=== PATIENT | female | born 1990 | race Caucasian/White ===

== ENCOUNTER 2017-03-16 16:29 | Emergency (ER) | payer SELFPAY ==
[~2017-03-16] VITALS: Ht 167.6 cm; Wt 90.0 kg
[~2017-03-16 16:29] MED LIST: BACT800T5 PO; CLAR10CA3 PO
[2017-03-16 16:31] VITALS: BP 126/80; PULSE 108; RESP 16; TEMP 98.5; O2SAT 97
--- NOTE | 2017-03-16 16:36 | PD ---
Physical Exam Time Seen by Provider: 16:35 Narrative 26-year-old female presents with complaint of white watery vaginal discharge with a fishy odor 3 days. Reports right lower abdominal cramping. Says it is not really a pain. Denies fever, vomiting. Unknown exposure to STD I/STD. Denies dysuria. Patient seen in triage. Vital signs reviewed. Patient awaiting bed placement. Data Data Last Documented VS Vital Signs Date Time Temp Pulse Resp B/P (MAP) Pulse Ox O2 Delivery O2 Flow Rate FiO2 03/16/17 16:31 98.5 108 16 126/80 (95) 97 Room Air [facility] Supervised Visit with CHUY: Bettina Genao Mar 16, 2017 16:36
[2017-03-16 18:29] LABS: BACTERIA, URINE RARE /hpf; BLOOD, URINE NEG (NEG); COMMENT (UR) CULT NOT INDICATED; CULTURE IF INDICATED CULT NOT INDICATED; GLUCOSE,URINE NEG (NEG); KETONE, URINE NEG (NEG); NITRITE,URINE NEG (NEG); SQUAMOUS EPITHELIAL CELL URINE 1 /hpf (0-5); URINE COLOR YELLOW (YELLW/STRAW)
--- NOTE | 2017-03-16 18:40 | PD ---
HPI Chief Complaint: [facility] Problem/Complaint Time Seen by Provider: 17:35 Travel History International Travel<30 days: No Contact w/Intl Traveler<30days: No Traveled to known affect area: No History of Present Illness HPI 26-year-old female came to the emergency room with history of vaginal discharge that is foul smelling for past 1 week. No history of pain, dysuria or fever. Patient has tried using [employer] which has not helped. Patient now is embarrassed to have intercourse given the foul smell. She has 1 partner that is for past 6 months and has been having unprotected sex. She is not . His history of STD. [facility] Past Medical History Narrative Medical List of her past medical, surgical, social and family history is reviewed from the nursing note. Diminished Hearing: No Genitourinary: Yes (yeast infection) Tetanus Vaccination: > 5 Years Influenza Vaccination: No ?: Not LMP: 02/27/17 Past Surgical History Cholecystectomy: Yes Social History Alcohol Use: No Tobacco Use: Yes Substance Use: No Allergies-Medications (Allergen,Severity, Reaction): Coded Allergies: Penicillins (Verified Allergy, Severe, rash, 03/16/17) Comments List of her allergies reviewed from the nursing note. Reported Meds & Prescriptions Reported Meds & Active Scripts Active No Active Prescriptions or Reported Medications Narrative Medication List of her home medications reviewed from the nursing note. Review of Systems Except as stated in HPI: all other systems reviewed are Neg Genitourinary: Positive: Discharge Physical Exam Narrative GENERAL: Awake, alert, obese, no obvious distress SKIN: Focused skin assessment warm/dry. HEAD: Atraumatic. Normocephalic. EYES: Pupils equal and round. No scleral icterus. No injection or drainage. ENT: No nasal bleeding or discharge. Mucous membranes pink and moist. NECK: Trachea midline. No JVD. CARDIOVASCULAR: Regular rate and rhythm. No murmur appreciated. RESPIRATORY: No accessory muscle use. Clear to auscultation. Breath sounds equal bilaterally. GASTROINTESTINAL: Abdomen soft, non-tender, nondistended. Hepatic and splenic margins not palpable. [employer]ER: Pelvic exam was done with the help of the speculum. External exam negative. There was some fishy odor detected on exam. Discharged looked normal. No CMT or adnexal tenderness. MUSCULOSKELETAL: No obvious deformities. No clubbing. No cyanosis. No edema. NEUROLOGICAL: Awake and alert. No obvious cranial nerve deficits. Motor grossly within normal limits. Normal speech. PSYCHIATRIC: Appropriate mood and affect; insight and judgment normal. Data Data Last Documented VS Vital Signs Date Time Temp Pulse Resp B/P (MAP) Pulse Ox O2 Delivery O2 Flow Rate FiO2 03/16/17 19:00 97.8 76 16 120/77 (91) 99 03/16/17 16:31 Room Air Orders Orders Gc And Chlamydia Pcr (03/16/17 17:36) Wet Prep Profile (03/16/17 17:36) Urinalysis - C+S If Indicated (03/16/17 17:36) Ed Urine Pregnancytest Poc (03/16/17 17:36) Ed Discharge Order (03/16/17 18:44) Labs Laboratory Tests Test 03/16/17 18:00 Urine Color YELLOW Urine Turbidity CLEAR Urine pH 7.0 Urine Specific [place] 1.022 Urine Protein NEG mg/dL Urine Glucose (UA) NEG mg/dL Urine Ketones NEG mg/dL Urine Occult Blood NEG Urine Nitrite NEG Urine Bilirubin NEG Urine Urobilinogen LESS THAN 2.0 MG/DL Urine Leukocyte Esterase NEG Urine WBC 3 /hpf Urine Squamous Epithelial Cells 1 /hpf Urine Bacteria RARE /hpf Microscopic Urinalysis Comment CULT NOT INDICATED Clue Cells (Wet Prep) NONE SEEN Vaginal Trichomonas (Wet Prep) NONE SEEN Vaginal Yeast (Wet Prep) NONE SEEN Chlamydia trachomatis DNA (PCR) NOT DETECTED Neisseria gonorrhoeae DNA (PCR) NOT DETECTED MDM Medical Decision Making Medical Screen Exam Complete: Yes Emergency Medical Condition: Yes Medical Record Reviewed: Yes Differential Diagnosis PID, vaginitis Narrative Course 6:42 PM with prep is negative. Awaiting for GC and chlamydia. I'm comfortable discharging the patient home without a treatment at this point. We'll call her back if any of the test results are positive. UA was within normal limit. Bedside was negative. Procedures EKG Prior to Arrival: No Diagnosis Primary Impression: Vaginal discharge Referrals: Primary Care Physician Additional Instructions: We will call you and the left know if the GC and/or chlamydia is positive in which case he will need to return to get treated. Have protected intercourse up until then. Return to the ER if the condition worsens or any other new concerns. Med/Other Pt SpecificInfo: No Change to Meds Scripts No Active Prescriptions or Reported Meds Disposition: 01 DISCHARGE HOME Condition: Stable Nate Sheikh MD Mar 16, 2017 18:40
[2017-03-16 19:00] VITALS: BP 120/77; TEMP 97.8
[2017-03-16 20:58] LABS: CHLAMYDIA PCR NOT DETECTED (NOT DETECT); NEISSERIA PCR NOT DETECTED (NOT DETECT)
== END 2017-03-16 19:00 | disposition home or self-care (01) ==
LOC: NEPC 16:29
DX: N89.8 Other specified noninflammatory disorders of vagina (principal); F17.200 Nicotine dependence, unspecified, uncomplicated
CPT/HCPCS: 81001; 84703; 87210; 87491; 87591; 99283